=== PATIENT | male | born 1985 | race African-American/Black ===

== ENCOUNTER 2019-06-19 | Emergency (ER) | payer BC ==
[~2019-06-19] MED LIST: AMOXICILLIN500 MG PO; AMOXIL500 M1 OR; ANUSOL-HC25 MG RE; BACTRIM DS1 TAB PO; FLEXERIL OR; LORTAB 5 OR; MIRALAX3350 N1 OR; MUPIROCIN2 % EX; NAPROSYN500 MG PO; NIZORAL200 MG OR; NO HOME MEDS; ULTRAM50 MG OR; VEETIDS500 MG OR
[2019-06-19 11:21] LABS: HEMATOCRIT 41.9 % (39.0-50.0); HEMOGLOBIN 14.2 g/dl (14.0-18.0); IMMATURE GRANULOCYTES 0.2 % (0.0-5.0); MEAN CELL VOLUME 85.5 fL CALC (80.0-100.0); MEAN CORPUSCULAR HGB CONC 33.9 g/L CALC (32.0-36.0); NEUT# 2.56 thou/uL (1.82-7.42); RED BLOOD COUNT 4.9 mill/uL (4.70-6.10); RED CELL DISTRI WIDTH 12.2 % (11.5-15.5)
[2019-06-19 11:41] LABS: ANION GAP 12 (6-22 (CALC)); BUN 9 mg/dL (9-20); BUN/CREATININE RATIO 12 (12-20 (CALC)); CARBON DIOXIDE 28 mmol/l (22-30); CHLORIDE 103 mmol/l (95-108); CREATININE 0.8 mg/dL (0.7-1.3); GFR > 60 ML/MIN (>=60 (CALC)); GFR FOR AFR.AMER. > 60 ML/MIN (>=60 (CALC)); POTASSIUM 4.3 mmol/l (3.5-5.1); SODIUM 139 mmol/l (137-146)
[2019-06-19] MEDS ORDERED: AMOX/K CLAV875 M1 PO (12:29)
== END 2019-06-19 13:05 | disposition home or self-care (01) | DRG 816 ==
PROVIDERS: Family Medicine
DX: R59.0 Localized enlarged lymph nodes (principal); F17.200 Nicotine dependence, unspecified, uncomplicated
CPT/HCPCS: Q9967

== ENCOUNTER 2019-12-13 08:31 | Emergency (ER) | payer BC ==
[~2019-12-13] VITALS: Ht 185.4 cm; Wt 100.0 kg
[~2019-12-13 08:31] MED LIST changes: +AMOX/K CLAV875 M1 PO
[2019-12-13 09:39] LABS: HEMATOCRIT 46.2 % (39.0-50.0); HEMOGLOBIN 14.8 g/dl (14.0-18.0); IMMATURE GRANULOCYTES 0.2 % (0.0-5.0); MEAN CORPUSCULAR HGB 28.5 pG CALC (26.0-32.0); NEUT# 2.21 thou/uL (1.82-7.42); RED BLOOD COUNT 5.19 mill/uL (4.70-6.10); RED CELL DISTRI WIDTH 12.4 % (11.5-15.5)
[2019-12-13 09:59] LABS: ALBUMIN 4.7 g/dL (3.2-5.0); ALKALINE PHOSPHATASE 82 u/l (38-126); ANION GAP 14 (6-22 (CALC)); BUN 5 mg/dL (9-20); BUN/CREATININE RATIO 7 (12-20 (CALC)); CARBON DIOXIDE 27 mmol/l (22-30); CHLORIDE 102 mmol/l (95-108); CREATININE 0.7 mg/dL (0.7-1.3); GFR > 60 ML/MIN (>=60 (CALC)); GFR FOR AFR.AMER. > 60 ML/MIN (>=60 (CALC)); POTASSIUM 4.4 mmol/l (3.5-5.1); SGOT/AST 40 u/l (17-59); SODIUM 139 mmol/l (137-146); TOTAL PROTEIN 7.8 g/dL (6.3-8.2)
[2019-12-13 10:07] LABS: BILIRUBIN, TOTAL 0.7 mg/dL (0.0-1.4)
[2019-12-13 14:20] VITALS: BP 116/75
--- NOTE | 2019-12-14 08:56 | NUR ---
Notified patient of positive Covid results. patient c/o difficulty breathing and seems slightly out of breath while talking. Advised patient to return to the ED immediatley. Patient states he will return to ED for further evaluation.
--- NOTE | 2019-12-14 13:31 | NUR ---
Patient did not come to the ED for further evaluation. Called patient. Patient states he is "feeling better" and does not want to come to the ED at this time. Advised patient to quarantine until contacted by the [facility] with further instructions. Advised patient to return to ED with difficulty breathing or other urgent matters. Patient verbalized understanding.
== END 2019-12-13 14:20 | disposition home or self-care (01) | DRG 179 ==
LOC: ED 08:31
PROVIDERS: Family Medicine
DX: U07.1 COVID-19 (principal); R07.9 Chest pain, unspecified; F17.200 Nicotine dependence, unspecified, uncomplicated; Z82.49 Family history of ischemic heart disease and other diseases of the circulatory system

== ENCOUNTER 2022-10-08 16:35 | Emergency (ER) | payer OTHER ==
[2022-10-08] VITALS (11 sets, daily range): BP systolic 109–161; BP diastolic 75–107
[~2022-10-08] VITALS: Ht 185.4 cm; Wt 95.0 kg
[2022-10-08] MEDS ORDERED: PREDNISONE20 MG PO (20:09)
[2022-10-09] MEDS ORDERED: EPIPEN 2-P0.3 MG/0.3 IM (11:17)
== END 2022-10-08 20:14 | disposition left against medical advice (07) | DRG 918 ==
LOC: ED 16:35
DX: T63.461A Toxic effect of venom of wasps, accidental (unintentional), initial encounter (principal); T78.3XXA Angioneurotic edema, initial encounter; F17.200 Nicotine dependence, unspecified, uncomplicated; Z53.29 Procedure and treatment not carried out because of patient's decision for other reasons

== ENCOUNTER 2022-10-09 09:55 | Emergency (ER) | payer OTHER ==
[2022-10-09] VITALS (9 sets, daily range): BP systolic 130–151; BP diastolic 82–95
[~2022-10-09] VITALS: Ht 185.4 cm; Wt 95.0 kg
[~2022-10-09 09:55] MED LIST changes: +PREDNISONE20 MG PO
[2022-10-09 10:12] LABS: BASO% 0.1 % (0-3); HEMATOCRIT 46.7 % (39.0-50.0); HEMOGLOBIN 15.4 g/dl (14.0-18.0); IMMATURE GRANULOCYTES 0.2 % (0.0-5.0); LYMPH% 7.9 % (15-41); MEAN CELL VOLUME 88.3 fL CALC (80.0-100.0); MEAN CORPUSCULAR HGB 29.1 pG CALC (26.0-32.0); NEUT# 15.25 thou/uL (1.82-7.42); NEUT% 86.8 % (42-76); RED BLOOD COUNT 5.29 mill/uL (4.70-6.10); RED CELL DISTRI WIDTH 12.3 % (11.5-15.5)
[2022-10-09 10:26] LABS: ALBUMIN 4.6 g/dL (3.2-5.0); ALKALINE PHOSPHATASE 109 u/l (38-126); ANION GAP 13 (6-22 (CALC)); BILIRUBIN, TOTAL 0.7 mg/dL (0.2-1.3); BUN 9 mg/dL (9-20); BUN/CREATININE RATIO 11 (12-20 (CALC)); CARBON DIOXIDE 23 mmol/l (22-30); CHLORIDE 108 mmol/l (95-108); CREATININE 0.8 mg/dL (0.7-1.3); GFR FOR AFR.AMER. > 60 ML/MIN (>=60 (CALC)); GFR OTHER RACES > 60 ML/MIN (>=60 (CALC)); POTASSIUM 4.2 mmol/l (3.5-5.1); SGOT/AST 38 u/l (17-59); SODIUM 139 mmol/l (137-146); TOTAL PROTEIN 7.7 g/dL (6.3-8.2)
[2022-10-09 10:57] LABS: TSH, 3RD GENERATION 0.13 uIU/mL (0.47 - 4.68)
[2022-10-09] MEDS ORDERED: EPIPEN 2-P0.3 MG/0.3 IM (11:17)
== END 2022-10-09 11:45 | disposition home or self-care (01) | DRG 884 ==
LOC: ED 09:55
PROVIDERS: Family Medicine
DX: R45.1 Restlessness and agitation (principal); R00.2 Palpitations; F17.200 Nicotine dependence, unspecified, uncomplicated